=== PATIENT | male | born 1985 | race Hispanic/Latino ===

== ENCOUNTER 2022-07-04 21:21 | Emergency (ER) | payer BC, OTHER ==
[~2022-07-04] VITALS: Ht 182.9 cm; Wt 108.9 kg
[2022-07-04] MEDS ORDERED: BOOSTRIX IM ONE ×3 (22:30→22:52)
[2022-07-04 22:50] VITALS: BP 155/81
[2022-07-04 23:48] VITALS: BP 155/81
--- NOTE | 2022-07-04 23:55 | NUR ---
ARRIVAL PT AMBULATORY INTO ER WITH NO DISTRESS ON RA WITH C/O 4CM LACERATION TO RIGHT HAND. HISTORY AND STATUS OBTAINED. VS AND ASSESSMENT COMPLETE CHARTED. DR NEVILLE NOTIFIED OF PT ARRIVAL. Addendum: 07/05/22 at 0034 by CGODINO ARRIVAL PT AMBULATORY INTO ER WITH NO DISTRESS ON RA WITH C/O 6CM LACERATION TO RIGHT HAND. HISTORY AND STATUS OBTAINED. VS AND ASSESSMENT COMPLETE CHARTED. DR NEVILLE NOTIFIED OF PT ARRIVAL.
[2022-07-05] MEDS ORDERED: BOOSTRIX IM ONE (00:09)
[2022-07-05] MEDS ORDERED: TRIPLE ANTIBIOTIC OINTMENT TP ONE (00:15)
--- NOTE | 2022-07-05 00:36 | ER.PDOC ---
General Chief Complaint: Extremities Stated Complaint: HAND LAC Time seen by MD: 22:15 Source: patient Exam Limitations: no limitations History of Present Illness Initial Comments Patient is a 36-year-old male with no reported past medical history who comes in with a right hand laceration that occurred about 2 hours prior to arrival. Patient states that he was going up the stairs when he took kind of tripped and he cut the dorsal aspect of his right hand on a bhavik nail or screw says it sustained about a 6 cm laceration on the back of his hand. States it has a stinging in nature pain made worse with palpation better with rest. Denies any other injuries or concerns at this time. Past Medical History Medical History: no pertinent history Surgical History: no surgical history Family History Significant Family History: no pertinent family hx Social History Smoking: other (Vapes) Alcohol Use: occassionally Drug Use: none Reviewed Nursing Reviewed: Vital Signs, Abn. Noted, Nursing Assessment Review of Systems Constitutional: no symptoms reported EENTM: no symptoms reported Respiratory: no symptoms reported Cardiovascular: no symptoms reported Gastrointestinal: no symptoms reported Genitourinary: no symptoms reported Musculoskeletal: no symptoms reported Skin: lesions Psychiatric/Neurological: no symptoms reported Physical Exam General Appearance: Alert, No Apparent Distress Hand: deformity (6 cm laceration to the dorsal aspect of the hand) Wrist: nml inspection, non-tender, nml ROM Neuro: sensation nml, motor nml Vascular: no vascular compromise Tendons: tendon function nml Forearm/Elbow/Arm: uninjured above wrist Skin: warm/dry Head/ENT: nml inspection, pharynx nml Neck/Back: nml inspection, non-tender Resp/CVS: no resp distress, lungs clear, heart sounds nml, reg. rate & rhythm Abdomen: non-tender, no organomegaly ED LACERATION WOUND REPAIR Wound Location & Length (Requi: rt hand Wound Length (cm): 6 Wound cleaned: hibiclens Distal NVT: neuro intact, vasc intact Anesthesia type: local Anesthesia: 1% Lidocaine Volume Anesthetic (ccs): 5 Wound's Depth, Shape: superficial Wound Explored: clean Tendon Intact: Yes Wound Debrided: minimal Wound Repaired With: sutures Suture Size/Type: 4:0, ethilon Suture Style: interupted Number of Sutures: 7 Sterile Dressing Applied?: Yes Results/Orders Results/Orders Orders - LUISITO NEVILLE MD Diph,Pertuss(Acell),Tet Vac/Pf (Boostrix (07/04/22 22:30) Diph,Pertuss(Acell),Tet Vac/Pf (Boostrix (07/04/22 22:51) Diph,Pertuss(Acell),Tet Vac/Pf (Boostrix (07/04/22 22:52) Diph,Pertuss(Acell),Tet Vac/Pf (Boostrix (07/05/22 00:09) Neomycin/Bacitracin/Polymyxinb (Triple A (07/05/22 00:15) Vital Signs Date Time Temp Pulse Resp B/P (MAP) Pulse Ox O2 Delivery O2 Flow Rate FiO2 07/04/22 23:48 98.5 79 18 07/04/22 23:48 98.5 79 18 97 07/04/22 22:50 98.5 79 18 155/81 (105) 97 Room Air* 0 21 Administered Medications Medications (Trade) Dose Ordered Sig/Naima Route PRN Reason Start Time Stop Time Status Last Admin Dose Admin Diphtheria/ Tetanus/Acell Pertussis (Boostrix) 0.5 ml ONCE ONCE IM 07/04/22 22:30 07/04/22 22:31 DC 07/04/22 11:42 0.5 ML Progress Progress Patient here with hand laceration we will planned to repair that laceration will also update patient's tetanus [id number] doing better was able to repair the laceration see that portion of the note. Patient voiced understanding when to follow-up and when to return to the ER. ER DEPART Departure Time of Disposition: 00:34 Disposition: 01 HOME / SELF CARE / HOMELESS Impression: Primary Impression: Hand laceration Condition: Improved Patient Instructions: Laceration Care, Adult Referrals: PCP,UNKNOWN (PCP) PRIMARY CARE PROVIDER Additional Instructions: Follow-up with your primary care provider within the next 7 - 10 days to have the wound checked and sutures removed possibly. If you have any new, persistent, or worsening symptoms or concerns, please seek medical attention. Duration or Time Spent with Pa: 30 Problem Qualifiers Primary Impression: Hand laceration Encounter type: initial encounter Foreign body presence: without foreign body Laterality: right Qualified Codes: S61.411A - Laceration without foreign body of right hand, initial encounter LUISITO NEVILLE MD July 05, 2022 00:36
[2022-07-05 00:37] VITALS: BP 138/72
== END 2022-07-05 00:40 | disposition home or self-care (01) ==
LOC: ER 21:21
DX: S61.411A Laceration without foreign body of right hand, initial encounter (principal); X58.XXXA Exposure to other specified factors, initial encounter; Y93.89 Activity, other specified; Y92.89 Other specified places as the place of occurrence of the external cause; Y99.8 Other external cause status
CPT/HCPCS: 12002; 90471; 90715; 99284